=== PATIENT | female | born 1950 ===

== ENCOUNTER 2018-03-17 11:38 | Outpatient (CLI) | payer OTHER ==
[~2018-03-17] VITALS: Ht 154.9 cm; Wt 94.8 kg
== END 2018-03-17 12:00 | disposition home or self-care (01) ==
LOC: OFIC 805 11:38
DX: J01.80 Other acute sinusitis (principal)

== ENCOUNTER 2018-03-24 11:31 | Outpatient (CLI) | payer OTHER ==
[~2018-03-24] VITALS: Ht 152.4 cm; Wt 94.8 kg
== END 2018-03-24 11:45 | disposition home or self-care (01) ==
LOC: OFIC 805 11:31
DX: J32.8 Other chronic sinusitis (principal); R60.0 Localized edema

== ENCOUNTER 2018-04-21 10:01 | Outpatient (CLI) | payer OTHER ==
[~2018-04-21] VITALS: Ht 152.4 cm; Wt 94.8 kg
== END 2018-04-21 10:15 | disposition home or self-care (01) ==
LOC: OFIC 805 10:01
DX: J01.80 Other acute sinusitis (principal); Q21.1 Atrial septal defect